=== PATIENT | male | born 1965 | race Hispanic/Latino ===

== ENCOUNTER 2024-06-14 00:52 | Emergency (ER) | payer SELFPAY ==
[~2024-06-14] VITALS: Ht 170.2 cm; Wt 72.6 kg
--- NOTE | 2024-06-14 01:33 | ERN ---
ED Note History of Present Illness Stated Complaint: TESTICULAR PAIN Chief Complaint: Testicular Injury/Pain Time Seen by MD: 01:24 Time Seen by Midlevel: 01:24 Dictation: 58-year-old male who presents to the emergency department due to report of kam pennington left-sided scrotal pain that began 2 hours prior to arrival. He denies having any fever or chills associated with this. There is no report of hematuria, dysuria, penile discharge or trauma related to this. At this time, he finds the sensation as an achy type of sensation which he rates as a 2/10. Upon initial evaluation, the patient presents in no acute distress. Patient denies being sexually active. 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 Initial Vital Sign VS Vital Signs Date Time Temp Pulse Resp B/P (MAP) Pulse Ox O2 Delivery O2 Flow Rate FiO2 06/14/24 01:06 98.1 72 18 169/97 99 0 Physical Exam Dictation General: awake, alert, NAD Head/Face: Normocephalic, atraumatic Eyes: PERRL, EOMI ENT: Oral mucosa moist Neck: Trachea midline, supple Cardiovascular: RRR, no edema Respiratory: Symmetrical, non-labored Abdomen: Soft, non-tender, non-distended, no guarding. Genitourinary: Positive cremasteric reflex, mild tenderness to the left scrotal area Skin: Warm, dry, good turgor, no rash MS/Extremity: Pulses equal, no cyanosis, neurovascular intact, FROM Neuro: COAx4, GCS 15, steady gait, Psych: Normal behavior, mood, and affect normal Results (Laboratory/Radiology) Laboratory/Radiology Laboratory Tests Test 06/14/24 01:31 White Blood Count 15.0 K/uL (4.8-10.8) H Red Blood Count 4.16 MIL/uL (4.50-6.20) L Hemoglobin 13.4 g/dL (14.0-18.0) L Hematocrit 40.4 % (42-54) L Mean Corpuscular Volume 97.1 fL (79-99) Mean Corpuscular Hemoglobin 32.2 pg (27.0-33.0) Mean Corpuscular Hemoglobin Concent 33.2 g/dL (32.0-36.0) Red Cell Distribution Width 13.7 % (11.0-15.5) Platelet Count 483 K/uL (130-400) H Mean Platelet Volume 8.3 fL (7.5-10.5) Immature Granulocyte % (Auto) 0.4 % (0-1) Neutrophils (%) (Auto) 73.6 % (40.0-77.0) Lymphocytes (%) (Auto) 20.2 % (21.0-51.0) L Monocytes (%) (Auto) 4.3 % (3.0-13.0) Eosinophils (%) (Auto) 1.2 % (0.0-8.0) Basophils (%) (Auto) 0.3 % (0.0-5.0) Neutrophils # (Auto) 11.1 K/uL (1.8-7.7) H Lymphocytes # (Auto) 3.0 K/uL (1.0-4.8) Monocytes # (Auto) 0.6 K/uL (0.1-1.0) Eosinophils # (Auto) 0.18 K/uL (0.00-0.70) Basophils # (Auto) 0.04 K/uL (0.00-0.20) Absolute Immature Granulocyte (auto 0.06 K/uL (0-1) Nucleated Red Blood Cells 0.0 % (0.0-0.19) Sodium Level 141 mmol/L (136-145) Potassium Level 3.6 mmol/L (3.5-5.1) Chloride Level 106 mmol/L (101-111) Carbon Dioxide Level 26 mmol/L (21-32) Blood Urea Nitrogen 21 mg/dL (7-18) H Creatinine 1.0 mg/dL (0.5-1.3) Glomerular Filtration Rate Calc 87 mL/min (>90) Random Glucose 122 mg/dL (70-105) H Total Calcium 8.6 mg/dL (8.5-10.1) Total Bilirubin 0.1 mg/dL (0.2-1.0) L Aspartate Amino Transf (AST/SGOT) 17 U/L (10-37) Alanine Aminotransferase (ALT/SGPT) 22 U/L (12-78) Alkaline Phosphatase 85 U/L (50-136) Total Protein 7.3 g/dL (6.0-8.3) Albumin 3.0 g/dL (3.5-5.0) L Labs Reviewed?: Yes ED Course ED Course Orders Procedure Category Date Status Time Cbc With Differential LAB 06/14/24 Complete 01:27 Comprehensive LAB 06/14/24 Complete Metabolic Panel 01:27 Urinalysis Profile LAB 06/14/24 Logged 01:27 Us Scrotum & Contents US 06/14/24 Logged 01:27 Vital Signs Date Time Temp Pulse Resp B/P (MAP) Pulse Ox O2 Delivery O2 Flow Rate FiO2 06/14/24 01:06 98.1 72 18 169/97 99 0 Medical Decision Making MDM MDM: Differential diagnosis: Epididymitis, testicular torsion, scrotal pain. Rationale: Tests considered and ordered secondary to shared decision making include: Previous outside records reviewed: Old ER visits. Risk of complication and/or morbidity or mortality of patient management: None Medications-Per medication reconciliation Need for hospitalization: Patient does not meet criteria for hospitalization. Need for emergency major/minor surgery: No There are no social concerns with this patient. Prescription drug management Prescriptions will include symptomatic care Patient's prior external medical records from other ER visits were reviewed by me as indicated. Prior testing and results from previous visits were reviewed. Prior tests were taken into account with medical decision making and resource utilization, independent historian/historians were used to obtain complete medical history. I independently interpreted the test that were performed, results were reviewed by me and considered findings on radiology if ordered. Medical management and examination interpretation discussions were had by me with other qualified healthcare professionals as indicated for the patient's care. DX & DISP Disposition: Discharge Departure Impression: Primary Impression: Left epididymitis Condition: Stable Scripts Cephalexin Monohydrate (Keflex) 500 Mg Cap 500 MG PO TID for 7 Days, #28 CAP Prov: NARAYAN ROBERSON 06/14/24 Referrals: SELF,REFERRAL (PCP) NARAYAN ROBERSON Jun 14, 2024 01:33
[2024-06-14 01:43] LABS: BASOPHILS # (AUTO) 0.04 K/uL (0.00-0.20); BASOPHILS % (AUTO) 0.3 % (0.0-5.0); EOSINOPHILS # (AUTO) 0.18 K/uL (0.00-0.70); EOSINOPHILS % (AUTO) 1.2 % (0.0-8.0); HEMATOCRIT 40.4 % (42-54); IMMATURE GRANULOCYTE ABSOLUTE 0.06 K/uL (0-1); LYMPHOCYTES % (AUTO) 20.2 % (21.0-51.0); MEAN CORPUSCULAR HEMOGLOBIN 32.2 pg (27.0-33.0); MEAN CORPUSCULAR HGB CONC 33.2 g/dL (32.0-36.0); MEAN CORPUSCULAR VOLUME 97.1 fL (79-99); MONOCYTES # (AUTO) 0.6 K/uL (0.1-1.0); MONOCYTES % (AUTO) 4.3 % (3.0-13.0); NEUTROPHILS # (AUTO) 11.1 K/uL (1.8-7.7); NEUTROPHILS % (AUTO) 73.6 % (40.0-77.0); PLATELET COUNT (AUTO) 483 K/uL (130-400); RED BLOOD CELL COUNT(AUTO) 4.16 MIL/uL (4.50-6.20); RED CELL DISTRIBUTION WIDTH 13.7 % (11.0-15.5)
[2024-06-14 01:52] LABS: POTASSIUM 3.6 mmol/L (3.5-5.1)
[2024-06-14 01:56] LABS: BILIRUBIN,TOTAL 0.1 mg/dL (0.2-1.0); TOTAL PROTEIN, SERUM 7.3 g/dL (6.0-8.3)
[2024-06-14] MEDS ORDERED: CEPH500B PO (02:24)
[2024-06-14 02:34] LABS: APPEARANCE,URINE CLEAR (CLEAR); BILIRUBIN,URINE NEGATIVE (NEGATIVE); COLOR,URINE LIGHT-YELLOW (YELLOW); GLUCOSE, URINE (UA) NEGATIVE (NEGATIVE); KETONES,URINE NEGATIVE (NEGATIVE); LEUKOCYTE ESTERASE ,URINE 250 Leu/uL (NEGATIVE); NITRATE,URINE NEGATIVE (NEGATIVE); OCCULT BLOOD,URINE NEGATIVE (NEGATIVE); PH,URINE 5.5 (5.0-8.0); PROTEIN,URINE NEGATIVE (NEGATIVE); UROBILINOGEN,URINE 0.2 mg/dL (0.2-1.0)
[2024-06-14 02:36] LABS: ADD UA MICROSCOPIC YES
[2024-06-14 02:39] LABS: MUCUS,URINE RARE LPF (None Seen); SQUAMOUS EPITHELIAL CELL,UR RARE /HPF (0-2); WBC,URINE 26-50 /HPF (0-1)
[2024-06-14 02:55] VITALS: BP 155/65; PULSE 88; RESP 18; TEMP 98; O2SAT 99
--- NOTE | 2024-06-14 08:40 | HMCIMG ---
US SCROTUM & CONTENTS HISTORY: Left scrotal pain COMPARISON: None TECHNIQUE: Duplex scrotal ultrasound study was performed. FINDINGS: The right testes measures 5 x 2 x 3 cm. The left testes measures 4 x 3 x 3 cm. No evidence of intratesticular mass or abnormal calcification is seen. Increased flow is seen of the left testes and left epididymis consistent with left epididymoorchitis. Normal flow is seen of right epididymis and right testes. There is left epididymal cyst measuring 4 mm. No hydroceles or varicocele is seen. IMPRESSION: 1. Line suspicious for left epididymal orchitis in the proper clinical setting.
--- NOTE | 2024-06-14 12:24 | NUR ---
PT CHART OPENED FOR PHARMACY CLARIFICATION BY [facility]. MEDICATION CLARIFICATION OBTAINED W/ASSIST FROM DR ORELLANA AND PROVIDED TO PHARMACIST.
== END 2024-06-14 02:57 | disposition home or self-care (01) ==
LOC: EDH 00:52
DX: N45.1 Epididymitis (principal); I10 Essential (primary) hypertension; Z86.73 Personal history of transient ischemic attack (TIA), and cerebral infarction without residual deficits
CPT/HCPCS: 36415; 76870; 80053; 81001; 85025; 87086; 87186; 99284